=== PATIENT | female | born 1985 | race Hispanic/Latino ===

== ENCOUNTER 2018-03-07 06:13 | Day surgery (SDC) | payer BC ==
[2018-03-07] MEDS ORDERED: Lidocaine/Epinephrine 1% 1:100000 10 ML IJ ONE (07:42)
[2018-03-07] MEDS ORDERED: Bupivacaine 0.25% 20 ML INJ IJ ONE ×2 (07:42→09:29)
[2018-03-07] MEDS ORDERED: ceFAZolin IV 1 gm in Dextrose 1 GM/50 ML BAG IVPB ONE ×2 (07:42→07:54)
[2018-03-07] MEDS ORDERED: Propofol 10 mg/ml Inj (20 ML) ONE (07:59)
[2018-03-07] MEDS ORDERED: Midazolam 2 MG/2 ML VIAL ONE (07:59)
[2018-03-07] MEDS ORDERED: Rocuronium 10 mg/ml (5 ml) ONE (08:25)
[2018-03-07] MEDS ORDERED: Neostigmine Methylsulfate 3mg/3ml Syringe IV ONE (09:46)
[2018-03-07] MEDS ORDERED: HYDROmorphone 0.5 mg/0.5 ml ISec IVP PRN (10:03)
[2018-03-07 11:16] VITALS: O2SAT 100
[2018-03-07 11:57] VITALS: BP 142/74; PULSE 78
[2018-03-07 12:59] VITALS: RESP 18; TEMP 98.6
--- NOTE | 2018-03-17 22:29 | OP ---
PROCEDURE DATE: 03/07/2018 PREOPERATIVE DIAGNOSES: Cholecystitis, gallstones. POSTOPERATIVE DIAGNOSIS: Cholecystitis. OPERATION PERFORMED: Robotic cholecystectomy. SURGEON: Sy Branham MD PSYCHIATRIC NP: Dr. Cantu DESCRIPTION OF PROCEDURE: In the operating room, the patient was identified by name, number, procedure, laterality by cassie. In the operating room, the patient was identified by both. The abdomen was entered through a Visiport placed in the umbilicus. Gentle to that, right angle was aligned to the gallbladder. Two trocars were placed followed by an property management assistant port in the right upper quadrant. This having been done, it was docked to the robot. Having done that, the dissection easily began. One arm was used to pull the gallbladder superiorly, and the dissection was done bimanually, pulling up on the infundibulum to expose the peritoneum over the cystic duct and artery, which were both readily identified. The cystic duct was circumscribed as was the artery. Visualization of the liver plate was identified and after achieving the view safety, the cystic duct was doubly clipped as was the artery. Multiple small areas on the liver were cauterized as was the bed. Gallbladder was taken off the liver bed using the hook. The gallbladder was placed in the bag and removed through the accessory port. The abdomen was irrigated and dried. Hemostasis was excellent. There was no bile. Looking around, there was nothing untoward. The operation proceeded. The 8-mm port when I closed with the midline, which was dilated to remove the gallbladder, was closed under direct vision with 0-Vicryl on a needle. TAP block was done on either side using total of 50 mL of dilute 0.25% Marcaine. Incisions were closed with subcutaneous Vicryl followed by subcuticular PDS. The patient was taken to the recovery room in good condition. Sponge and needle counts were correct. Sy Branham MD
== END 2018-03-07 13:00 | disposition home or self-care (01) ==
LOC: C.SDS 06:13
PROVIDERS: ATTEND Surgery
DX: K80.10 Calculus of gallbladder with chronic cholecystitis without obstruction (principal)
CPT/HCPCS: 47562; 88304; J0690; J1100; J1170; J2001; J2250; J2405; J2704; J2710; J2765; J3010; J7030